=== PATIENT | female | born 1950 | race Caucasian/White ===

== ENCOUNTER 2017-09-12 05:32 | Inpatient (IN) | payer MEDICARE, OTHER ==
[~2017-09-12] VITALS: Ht 154.9 cm; Wt 62.3 kg
[~2017-09-12 05:32] MED LIST: CeFAZolin 2 GM/DEXTROSE 50 ML IV ONE; RINGERS SOLUTION,LACTATED 1,000 ML IV ONE
[2017-09-12] MEDS ORDERED: RINGERS SOLUTION,LACTATED 1,000 ML IV ONE ×3 (06:00→08:06)
[2017-09-12] MEDS ORDERED: METF500T4 PO (06:11)
[2017-09-12] MEDS ORDERED: PROP40TA7 PO (06:11)
[2017-09-12] MEDS ORDERED: ROSU10 PO (06:11)
[2017-09-12 06:28] LABS: GLUCOMETER DEV NAME(LOC) SDS 5; GLUCOSE,POINT OF CARE 128 MG/DL (70-110)
[2017-09-12] MEDS ORDERED: SODIUM CHLORIDE 0.9% 20 ML ONE (06:57)
[2017-09-12] MEDS ORDERED: SODIUM CHLORIDE 0.9% 50 ML ONE (06:57)
[2017-09-12] MEDS ORDERED: SODIUM CL IRRIG SOLN BAG 3,000 ML IRRIG ONE (06:57)
[2017-09-12] MEDS ORDERED: CeFAZolin 2 GM/DEXTROSE 50 ML IV ONE (07:00)
[2017-09-12] MEDS ORDERED: ASPI-556 PO (07:00)
[2017-09-12] MEDS ORDERED: CLON2 PO (07:00)
[2017-09-12] MEDS ORDERED: SODIUM CHLORIDE 0.9% 1,000 ML IV SCH ×2 (07:00→07:19)
[2017-09-12] MEDS ORDERED: LEVO75 PO (07:00)
[2017-09-12] MEDS ORDERED: TRANEXAMIC ACID 1,000 MG in DEXTROSE 5%-WATER 50 ML IV ONE ×2 (07:15→08:30)
[2017-09-12] MEDS ORDERED: BUPIVACAINE LIPOSOME/PF 1.3%-13.3MG/ML SUSPENSION 20 ML VIAL INJ ONE (07:15)
[2017-09-12] MEDS ORDERED: BISACODYL 10 MG RECTAL RECTAL SUPPOSITORY PR PRN (07:30)
[2017-09-12] MEDS ORDERED: DiphenhydrAMINE HCL 50 MG/ML VIAL IVP PRN (07:30)
[2017-09-12] MEDS ORDERED: ZOLPIDEM TARTRATE 10 MG TABLET PO PRN (07:30)
[2017-09-12] MEDS ORDERED: MAG HYDROX/AL HYDROX/SIMETH 30 ML SUSP UDCUP PO PRN (07:30)
[2017-09-12] MEDS ORDERED: BENZOCAINE/MENTHOL LOZENGE [8 LOZENGES/PACKET] PO PRN (07:30)
[2017-09-12] MEDS ORDERED: SODIUM CHLORIDE 0.9% 250 ML IV ONE (08:06)
[2017-09-12] MEDS ORDERED: ACETAMINOPHEN 1000 MG/ISO-OSM 100 ML IV ONE (09:01)
[2017-09-12 10:57] LABS: GLUCOMETER DEV NAME(LOC) PACU 2; GLUCOSE,POINT OF CARE 98 MG/DL (70-110)
[2017-09-12] MEDS ORDERED: CELECOXIB 200 MG CAPSULE PO ONE (11:15)
[2017-09-12] MEDS: ONDANSETRON HCL 4 MG/2 ML VIAL IVP PRN (11:33)
[2017-09-12 11:51] VITALS: BP 133/74
[2017-09-12] MEDS: HYDROmorphone 2 MG/ML SYRINGE IVP PRN ×2 (13:02→18:36)
[2017-09-12] MEDS: ACETAMINOPHEN 1000 MG/ISO-OSM 100 ML IV SCH ×2 (14:56→17:56)
[2017-09-12 15:41] VITALS: BP 123/63
[2017-09-12] MEDS ORDERED: RIVAROXABAN 10 MG TABLET PO SCH (16:00)
[2017-09-12] MEDS ORDERED: CeFAZolin 1 GM/DEXTROSE 50 ML IV SCH (16:00)
[2017-09-12] MEDS: CeFAZolin SODIUM 1 GM in DEXTROSE 5%-WATER 10 ML IV SCH (16:20)
[2017-09-12] MEDS: FERROUS SULFATE 325 MG EC TABLET PO SCH (16:20)
[2017-09-12] MEDS: CELECOXIB 200 MG CAPSULE PO SCH (20:44)
[2017-09-12] MEDS: CYCLOBENZAPRINE HCL 10 MG TABLET PO SCH (20:44)
[2017-09-12] MEDS: FAMOTIDINE 20 MG TABLET PO SCH (20:44)
[2017-09-12] MEDS: DOCUSATE SODIUM 100 MG CAPSULE PO SCH (20:44)
[2017-09-12 20:47] VITALS: BP 140/79
[2017-09-12 23:54] VITALS: BP 102/56
[2017-09-13] MEDS: ACETAMINOPHEN 1000 MG/ISO-OSM 100 ML IV SCH ×2 (00:35→06:58)
[2017-09-13] MEDS: CeFAZolin SODIUM 1 GM in DEXTROSE 5%-WATER 10 ML IV SCH (00:39)
[2017-09-13] MEDS: HYDROmorphone 2 MG/ML SYRINGE IVP PRN ×2 (03:03→12:29)
[2017-09-13] MEDS: ONDANSETRON HCL 4 MG/2 ML VIAL IVP PRN (03:03)
[2017-09-13 04:01] VITALS: BP 109/66
[2017-09-13 06:22] LABS: BASOPHILS % (AUTO) 0.2 % (0.0-2.0); EOSINOPHILS % (AUTO) 1.5 % (1.0-6.0); HEMATOCRIT 35.1 % (36-46); HEMOGLOBIN 11.9 g/dL (12.0-16.0); LYMPHOCYTES # (AUTO) 1.1 K/uL (1.0-4.8); LYMPHOCYTES % (AUTO) 16.7 % (22.0-44.0); MEAN CORPUSCULAR HEMOGLOBIN 32.4 pg (26.0-34.0); MEAN CORPUSCULAR HGB CONC 33.9 G/dL (31.0-37.0); MEAN CORPUSCULAR VOLUME 95 fL (80-100); MONOCYTES # (AUTO) 0.4 K/uL (0.1-1.0); MONOCYTES % (AUTO) 5.9 % (2.0-9.0); NEUTROPHILS # (AUTO) 5.1 K/uL (1.8-7.7); NEUTROPHILS % (AUTO) 75.7 % (40.0-70.0); PLATELET COUNT (AUTO) 215 K/uL (150-450); RED BLOOD CELL COUNT(AUTO) 3.68 MIL/uL (4.00-5.20); RED CELL DISTRIBUTION WIDTH 14.8 % (11.5-14.5)
[2017-09-13] MEDS ORDERED: LEVOTHYROXINE SODIUM 75 MCG TABLET PO SCH (06:30)
[2017-09-13 06:46] LABS: ANION GAP 6 mmol/L (8-16); CALCIUM, TOTAL 8.4 mg/dL (8.8-10.5); CARBON DIOXIDE 28 mmol/L (22-29); CHLORIDE 100 mmol/L (98-107); GLOMERULAR FILTR. RATE CALC > 60 mL/min (>60); GLUCOSE,RANDOM 130 mg/dL (70-110); POTASSIUM 3.9 mmol/L (3.5-5.1); SODIUM SERUM 134 mmol/L (136-145); UREA NITROGEN, BLOOD 10 mg/dL (7-18)
[2017-09-13] MEDS ORDERED: MetFORMIN HCL 500 MG TABLET PO SCH (08:00)
[2017-09-13 08:06] VITALS: BP 122/72
[2017-09-13] MEDS ORDERED: ROSUVASTATIN CALCIUM 10 MG TABLET PO SCH (09:00)
[2017-09-13] MEDS ORDERED: ClonazePAM 1 MG TABLET PO SCH (09:00)
[2017-09-13] MEDS: CYCLOBENZAPRINE HCL 10 MG TABLET PO SCH (09:09)
[2017-09-13] MEDS: CELECOXIB 200 MG CAPSULE PO SCH (09:09)
[2017-09-13] MEDS: DOCUSATE SODIUM 100 MG CAPSULE PO SCH (09:09)
[2017-09-13] MEDS: FAMOTIDINE 20 MG TABLET PO SCH (09:09)
[2017-09-13] MEDS: FERROUS SULFATE 325 MG EC TABLET PO SCH (09:09)
[2017-09-13 11:36] VITALS: BP 162/77
[2017-09-13 12:34] VITALS: BP 158/75
[2017-09-13] MEDS ORDERED: OxyCODONE HCL/ACETAMINOPHEN 5-325 MG TABLET PO PRN (15:30)
[2017-09-13] MEDS ORDERED: OxyCODONE HCL/ACETAMINOPHEN 10-325 MG TABLET PO SCH (18:00)
== END 2017-09-13 14:00 | disposition home or self-care (01) | DRG 470 ==
LOC: 4E 05:32
PROVIDERS: ADMIT Orthopaedic Surgery; ATTEND Orthopaedic Surgery
PROC: 8E0Y0CZ Robotic Assisted Procedure of Lower Extremity, Open Approach (ICD-10-PCS; 2017-09-12)
PROC: 0SRD0L9 Replacement of Left Knee Joint with Medial Unicondylar Synthetic Substitute, Cemented, Open Approach (ICD-10-PCS; principal; 2017-09-12 07:30)
DX: M17.12 Unilateral primary osteoarthritis, left knee (principal); E03.9 Hypothyroidism, unspecified; E11.9 Type 2 diabetes mellitus without complications; I10 Essential (primary) hypertension; E78.5 Hyperlipidemia, unspecified; R00.1 Bradycardia, unspecified
CPT/HCPCS: 82948; 82962; 87081; 97162; 97165; C9290; J0131; J0690; J1170; J2405; J3490; J7050; J7060; J7120